=== PATIENT | female | born 1995 | race African-American/Black ===

== ENCOUNTER 2024-05-06 17:54 | Inpatient (IN) | payer OTHER ==
[2024-05-06 19:18] VITALS: BMI 31.5
[2024-05-06 19:39] LABS: ABSOLUTE IMMATURE GRANULOCYTES 0.14 x10^3/uL (0.0-0.031); BASOPHILS # 0.04 x10^3/uL (0.01-0.08); EOSINOPHIL % 0.1 % (0.7-5.8); EOSINOPHILS # 0.01 x10^3/uL (0.04-0.36); HEMATOCRIT 37.4 % (34.1-44.9); HEMOGLOBIN 11.8 g/dL (11.2-15.7); MCHC 31.6 g/dl (32.2-35.5); MEAN CELL VOLUME 92.3 fl (79.4-94.8); MEAN PLT VOLUME 12.2 fl (9.4-12.3); MONOCYTE # 0.96 x10^3/uL (0.24-0.86); MONOCYTE % 5.8 % (4.7-12.5); PLATELET COUNT 226 x10^3/uL (182-369); RDW 13.1 % (12.1-16.5)
[2024-05-06] MEDS ORDERED: OXYTOCIN 20 UNITS in 0.9% NS 20 UNIT/1,000 ML INFUS.BAG IV ONE (19:51)
[2024-05-06 19:53] LABS: INR 0.95 (0.83-1.09); PROTHROMBIN TIME (PATIENT) 10.4 SEC (9.7-13.0)
[2024-05-06 19:55] LABS: ACTIVATED PTT 27.2 SECONDS (25.2-36.5)
[2024-05-06 20:05] LABS: POTASSIUM 4.5 mmol/L (3.5-5.1)
[2024-05-06 20:06] LABS: CALCIUM 9.7 mg/dL (8.5-10.1)
[2024-05-06 20:07] LABS: BLOOD UREA NITROGEN 5.8 mg/dL (7-18)
[2024-05-06 20:09] LABS: CREATININE 0.6 mg/dL (0.55-1.3)
[2024-05-06] MEDS ORDERED: oxyCODONE HCL 5 MG TABLET PO PRN (20:42)
[2024-05-06] MEDS ORDERED: BENZOCAINE 28 GM HEMORRHOIDAL OINTMENT TP PRN (20:42)
[2024-05-06] MEDS ORDERED: ACETAMINOPHEN 325 MG TABLET (FP) PO PRN (20:42)
[2024-05-06] MEDS ORDERED: METHYLERGONOVINE MALEATE 0.2 MG/1 ML AMP IM PRN (20:42)
[2024-05-06] MEDS ORDERED: BISACODYL 10 MG SUPP.RECT RC PRN (20:42)
[2024-05-06 21:14] LABS: CORD BASE EXCESS -3.2 mmol/L (0-2); CORD pH 7.326 (7.14-7.44)
[2024-05-06 23:08] VITALS: RESP 18
[2024-05-07 00:10] LABS: HCV DIAGNOSTIC IN-HOUSE W/RFLX NON-REACTIVE (NONREACTIVE)
[2024-05-07 00:11] LABS: HIV INTERPRETATION NEGATIVE (NEGATIVE)
[2024-05-07] MEDS: LACTATED RINGERS SOLUTION 1,000 ML/1,000 ML INFUS.BAG IV SCH (06:12)
[2024-05-07] MEDS: OXYTOCIN 20 UNITS in 0.9% NS 20 UNIT/1,000 ML INFUS.BAG IV SCH (06:12)
[2024-05-07 07:25] LABS: ABSOLUTE IMMATURE GRANULOCYTES 0.17 x10^3/uL (0.0-0.031); BASOPHILS # 0.05 x10^3/uL (0.01-0.08); EOSINOPHIL % 0.2 % (0.7-5.8); EOSINOPHILS # 0.04 x10^3/uL (0.04-0.36); HEMATOCRIT 31.2 % (34.1-44.9); MCHC 32.1 g/dl (32.2-35.5); MEAN CELL VOLUME 91.2 fl (79.4-94.8); MEAN PLT VOLUME 11.5 fl (9.4-12.3); MONOCYTE % 11.7 % (4.7-12.5); PLATELET COUNT 204 x10^3/uL (182-369); RDW 13.2 % (12.1-16.5)
[2024-05-07] MEDS: FERROUS SO4 325 MG TABLET (FP) PO SCH (08:30)
[2024-05-07] MEDS: PRENATAL VITAMINS W/ FOLIC ACID TABLET (FP) PO SCH (09:10)
[2024-05-07] MEDS: BENZOCAINE 20% 57 GM BOTTLE TP PRN (14:18)
[2024-05-07] MEDS: IBUPROFEN 600 MG TABLET (FP) PO PRN (15:15)
[2024-05-07] MEDS ORDERED: SENNOSIDES/DOCUSATE COMBO (SENNA PLUS) TABLET (UD) PO PRN (22:00)
[2024-05-08 11:44] VITALS: BP 122/69; PULSE 92; TEMP 98.6
[2024-05-08] MEDS: WITCH HAZEL 50% (TUCKS) 40 PAD/JAR PAD TP PRN (14:06)
== END 2024-05-08 17:15 | disposition home or self-care (01) | DRG 560 ==
LOC: JDEL 17:54 → JLDR 18:36 → J3W 23:14
PROVIDERS: ADMIT Obstetrics & Gynecology; ATTEND Obstetrics & Gynecology
PROC: 10E0XZZ Delivery of Products of Conception, External Approach (ICD-10-PCS; principal; 2024-05-06)
PROC: 0HQ9XZZ Repair Perineum Skin, External Approach (ICD-10-PCS; 2024-05-06)
PROC: 0W8NXZZ Division of Female Perineum, External Approach (ICD-10-PCS; 2024-05-06)
DX: O70.0 First degree perineal laceration during delivery (principal); Z3A.40 40 weeks gestation of pregnancy; Z37.0 Single live birth
CPT/HCPCS: 36415; 36600; 59409; 80048; 82803; 85025; 85610; 85730; 86780; 86803; 86850; 86900; 86901; 87389